=== PATIENT | male | born 1985 | race Caucasian/White ===

== ENCOUNTER 2018-05-03 23:07 | Inpatient (IN) | payer SELFPAY ==
[~2018-05-03] VITALS: Ht 170.2 cm; Wt 69.4 kg
[2018-05-03 23:40] LABS: BASOPHILS # (AUTO) 0.2 X10'3 (0-0.2); BASOPHILS % (AUTO) 0.8 % (0-1); EOSINOPHILS % (AUTO) 0.1 % (0-6); HEMATOCRIT 51.2 % (42.0-52.0); HEMOGLOBIN 17.5 g/dl (14.0-17.9); LYMPHOCYTES # (AUTO) 1.9 X10'3 (1.1-4.8); LYMPHOCYTES % (AUTO) 9.2 % (21-51); MEAN CORPUSCULAR HEMOGLOBIN 30.2 PG (27.0-31.0); MEAN CORPUSCULAR HGB CONC 34.2 % (33.0-36.5); MEAN CORPUSCULAR VOLUME 88.1 FL (78-98); MEAN PLATELET VOLUME 7.4 FL (7.4-10.4); MONOCYTES # (AUTO) 0.7 X10'3 (0-0.9); MONOCYTES % (AUTO) 3.3 % (2-12); NEUTROPHILS # (AUTO) 17.8 X10'3 (1.8-7.7); NEUTROPHILS % (AUTO) 86.6 % (42-75); PLATELET COUNT 408 X10'3 (140-440); RED BLOOD COUNT 5.81 X10'6 (4.70-6.10); RED CELL DISTRIBUTION WIDTH 13.1 % (11.5-14.5); WHITE BLOOD COUNT 20.5 X10'3 (4.5-11.0)
[2018-05-03] MEDS ORDERED: normal saline 1000ml 1,000 ML IV ONE (23:50)
[2018-05-03] MEDS ORDERED: morphine 4 MG/ML inj SYRINge IV ONE (23:50)
[2018-05-03] MEDS ORDERED: normal saline 1000ML IV soln IVB ONE (23:50)
[2018-05-03] MEDS ORDERED: ondansetron/PF 4mg/2ml inj IV ONE (23:50)
[2018-05-03 23:57] LABS: PROTHROMBIN TIME 10.1 SECONDS (9.0-12.0)
[2018-05-03] MEDS ORDERED: iohexol 300mg/ml 100ml inj. ONE (23:59)
[2018-05-04] VITALS (21 sets, daily range): BP systolic 99–142; BP diastolic 57–83
[2018-05-04] MEDS ORDERED: ondansetron/PF 4mg/2ml inj IV ONE (00:25)
[2018-05-04] MEDS ORDERED: piperacillin/tazo 3.375gm/50ml 50 ML IV SCH (00:49)
[2018-05-04] MEDS ORDERED: morphine 4 MG/ML inj SYRINge IV ONE (00:50)
[2018-05-04 00:57] LABS: ALANINE AMINOTRANSFERASE 43 U/L (12-78); ALBUMIN 3.3 G/DL (3.4-5.0); ALKALINE PHOSPHATASE 82 IU/L (46-116); ANION GAP 6 (8-16); ASPARTATE AMINO TRANSFERASE 10 U/L (10-37); BILIRUBIN,TOTAL 0.6 MG/DL (0.1-1.0); BLOOD UREA NITROGEN 12 MG/DL (7-18); BUN/CREATININE RATIO 15.4 (5.4-32.0); CHLORIDE 103 MMOL/L (99-107); CREATININE 0.78 MG/DL (0.60-1.10); GLUCOSE 134 MG/DL (70-104); LIPASE 96 U/L (73-393); POTASSIUM 3.4 MMOL/L (3.5-5.1); SODIUM 137 MMOL/L (135-145); TOTAL CARBON DIOXIDE 28.3 MMOL/L (24-32); TOTAL PROTEIN 6.6 G/DL (6.4-8.2); eGFR > 90 ML/MIN
[2018-05-04] MEDS: normal saline 1000ml 1,000 ML IV SCH ×3 (01:12→15:36)
[2018-05-04] MEDS ORDERED: morphine 4 MG/ML inj SYRINge IV PRN ×3 (01:15→12:45)
[2018-05-04] MEDS ORDERED: mag hydrox/Alum hydrox/simeth 30ml oral suspension PO PRN (01:15)
[2018-05-04] MEDS ORDERED: magnesium hydroxide 30ml (MOM) UD suspension PO PRN (01:15)
[2018-05-04 01:33] LABS: CLARITY,URINE CLEAR (Clear); COLOR,URINE YELLOW (Yellow); GLUCOSE, URINE NEGATIVE (Neg); KETONES,URINE 15 mg/dl (Neg); LEUKOCYTE ESTERASE ,URINE NEGATIVE (Neg); NITRITES, URINE NEGATIVE (Neg); OCCULT BLOOD,URINE NEGATIVE (Neg); PROTEIN,URINE NEGATIVE (Neg)
[2018-05-04 01:34] LABS: UA COLLECTION TYPE NON-SPECIFIED
[2018-05-04] MEDS: morphine 4 MG/ML inj SYRINge IV PRN ×2 (05:11→21:28)
[2018-05-04] MEDS ORDERED: potassium Cl 20 mEq SR tablet PO STA (07:10)
[2018-05-04] MEDS: piperacillin/tazo 4.5gm/100ml 100 ML IV SCH ×3 (07:48→23:13)
[2018-05-04] MEDS: HYDROmorphone/NS 1 mg/ml CADD 50 ML IV SCH ×7 (07:48→18:52)
[2018-05-04] MEDS ORDERED: NO HOME MEDS (07:59)
[2018-05-04] MEDS ORDERED: ceFAZolin 1000mg inj ONE (12:30)
[2018-05-04] MEDS ORDERED: BUPIVAcaine/PF 2.5mg/ml (0.25%) 10ml vial ONE (12:30)
[2018-05-04] MEDS ORDERED: sevoflurane 250ml liquid IH ONE (12:41)
[2018-05-04] MEDS ORDERED: ringers solution, lacted 1,000 ML IV SCH (12:42)
[2018-05-04] MEDS ORDERED: proCHLORperazine 10 MG/2 ml inj IV PRN (12:45)
[2018-05-04] MEDS ORDERED: meperidine/PF 25mg/ml syringe IV PRN ×2 (12:45)
[2018-05-04] MEDS ORDERED: ondansetron/PF 4mg/2ml inj IV PRN (12:45)
[2018-05-04] MEDS ORDERED: fentaNYL /PF 50mcg/ml 5ml ampule ONE (12:50)
[2018-05-04] MEDS ORDERED: midazolam 2 mg/2 ml injection ONE (12:50)
[2018-05-04] MEDS ORDERED: succinylcholine 20mg/ml inj IV ONE (13:00)
[2018-05-04] MEDS ORDERED: rocuronium 10mg/ml inj IV ONE (13:00)
[2018-05-04] MEDS ORDERED: propofol inj 20 ML IV ONE (13:00)
[2018-05-04] MEDS ORDERED: LIDOcaine 2% (20mg/ml) 5ml vial ONE (13:00)
[2018-05-04] MEDS ORDERED: glycopyrrolate 0.2mg/ml inj ONE (13:35)
[2018-05-04] MEDS ORDERED: neostigmine methylsulfate 1 MG/ML 10ml vial ONE (13:35)
[2018-05-04] MEDS ORDERED: ondansetron/PF 4mg/2ml inj ONE (14:13)
[2018-05-04] MEDS: meperidine/PF 25mg/ml syringe IV PRN ×2 (14:39→15:41)
[2018-05-04] MEDS ORDERED: CADD PCA waste documentation MC PRN (19:05)
[2018-05-04] MEDS: HYDROmorphone 1 mg/ml syringe IV PRN ×2 (19:15→23:13)
[2018-05-04] MEDS: acetaminophen 325mg tablet PO PRN (19:16)
[2018-05-04] MEDS: temazepam 15mg capsule PO PRN (21:32)
[2018-05-05] VITALS: BP 107/64
[2018-05-05] MEDS: ondansetron/PF 4mg/2ml inj IV PRN ×3 (01:09→20:02)
[2018-05-05] MEDS: temazepam 15mg capsule PO PRN ×2 (01:10→23:43)
[2018-05-05] MEDS: morphine 4 MG/ML inj SYRINge IV PRN ×3 (01:30→17:58)
[2018-05-05] MEDS: normal saline 1000ml 1,000 ML IV SCH ×2 (02:40→12:43)
[2018-05-05 04:00] VITALS: BP 124/79
[2018-05-05 04:28] LABS: BASOPHILS # (AUTO) 0.1 X10'3 (0-0.2); BASOPHILS % (AUTO) 0.6 % (0-1); EOSINOPHILS % (AUTO) 0 % (0-6); HEMATOCRIT 45.5 % (42.0-52.0); HEMOGLOBIN 15.4 g/dl (14.0-17.9); LYMPHOCYTES # (AUTO) 2.3 X10'3 (1.1-4.8); LYMPHOCYTES % (AUTO) 13.7 % (21-51); MEAN CORPUSCULAR HEMOGLOBIN 30.7 PG (27.0-31.0); MEAN CORPUSCULAR HGB CONC 33.8 % (33.0-36.5); MEAN CORPUSCULAR VOLUME 90.9 FL (78-98); MEAN PLATELET VOLUME 7.2 FL (7.4-10.4); MONOCYTES # (AUTO) 1.4 X10'3 (0-0.9); MONOCYTES % (AUTO) 8.5 % (2-12); NEUTROPHILS % (AUTO) 77.2 % (42-75); PLATELET COUNT 283 X10'3 (140-440); RED CELL DISTRIBUTION WIDTH 13.6 % (11.5-14.5); WHITE BLOOD COUNT 16.9 X10'3 (4.5-11.0)
[2018-05-05 04:46] LABS: ALANINE AMINOTRANSFERASE 30 U/L (12-78); ALBUMIN 2.9 G/DL (3.4-5.0); ALBUMIN/GLOBULIN RATIO 0.8 (1.1-1.5); ALKALINE PHOSPHATASE 85 IU/L (46-116); ANION GAP 7 (8-16); ASPARTATE AMINO TRANSFERASE 18 U/L (10-37); BILIRUBIN,TOTAL 1.5 MG/DL (0.1-1.0); BLOOD UREA NITROGEN 6 MG/DL (7-18); BUN/CREATININE RATIO 6.6 (5.4-32.0); CALCIUM 8.4 MG/DL (8.5-10.1); CHLORIDE 103 MMOL/L (99-107); CREATININE 0.91 MG/DL (0.60-1.10); GLUCOSE 102 MG/DL (70-104); POTASSIUM 3.7 MMOL/L (3.5-5.1); SODIUM 137 MMOL/L (135-145); TOTAL CARBON DIOXIDE 27.4 MMOL/L (24-32); TOTAL PROTEIN 6.7 G/DL (6.4-8.2); eGFR > 90 ML/MIN
[2018-05-05] MEDS: HYDROmorphone 1 mg/ml syringe IV PRN ×3 (05:24→23:38)
[2018-05-05 07:00] VITALS: BP 108/58
[2018-05-05] MEDS: piperacillin/tazo 4.5gm/100ml 100 ML IV SCH ×2 (08:50→16:37)
[2018-05-05] MEDS: acetaminophen 325mg tablet PO PRN ×2 (08:54→20:03)
[2018-05-05 11:00] VITALS: BP 121/78
[2018-05-05 20:00] VITALS: BP 134/84
[2018-05-06] VITALS: BP 94/54
[2018-05-06] MEDS: piperacillin/tazo 4.5gm/100ml 100 ML IV SCH ×3 (00:31→15:15)
[2018-05-06] MEDS: Potassium Cl inj 20 MEQ in normal saline 1000ml 1,000 ML IV SCH ×2 (02:10→14:54)
[2018-05-06] MEDS: HYDROmorphone 1 mg/ml syringe IV PRN (03:38)
[2018-05-06] MEDS: ondansetron/PF 4mg/2ml inj IV PRN ×2 (03:38→15:08)
[2018-05-06] MEDS ORDERED: HYDROmorphone 1 mg/ml syringe IV PRN (04:20)
[2018-05-06 06:13] LABS: ALANINE AMINOTRANSFERASE 30 U/L (12-78); ALBUMIN 2.9 G/DL (3.4-5.0); ALBUMIN/GLOBULIN RATIO 0.7 (1.1-1.5); ALKALINE PHOSPHATASE 76 IU/L (46-116); ANION GAP 8 (8-16); ASPARTATE AMINO TRANSFERASE 21 U/L (10-37); BLOOD UREA NITROGEN 8 MG/DL (7-18); BUN/CREATININE RATIO 7.9 (5.4-32.0); CALCIUM 8.8 MG/DL (8.5-10.1); CHLORIDE 102 MMOL/L (99-107); CREATININE 1.01 MG/DL (0.60-1.10); GLUCOSE 130 MG/DL (70-104); POTASSIUM 3.6 MMOL/L (3.5-5.1); SODIUM 140 MMOL/L (135-145); TOTAL CARBON DIOXIDE 30.5 MMOL/L (24-32); eGFR 84 ML/MIN
[2018-05-06 06:22] LABS: BASOPHILS % (AUTO) 0.1 % (0-1); EOSINOPHILS # (AUTO) 0.1 X10'3 (0-0.9); EOSINOPHILS % (AUTO) 0.4 % (0-6); HEMATOCRIT 45.6 % (42.0-52.0); HEMOGLOBIN 15.3 g/dl (14.0-17.9); LYMPHOCYTES # (AUTO) 1.6 X10'3 (1.1-4.8); LYMPHOCYTES % (AUTO) 9.8 % (21-51); MEAN CORPUSCULAR HEMOGLOBIN 30.4 PG (27.0-31.0); MEAN CORPUSCULAR HGB CONC 33.6 % (33.0-36.5); MEAN CORPUSCULAR VOLUME 90.5 FL (78-98); MEAN PLATELET VOLUME 7.5 FL (7.4-10.4); MONOCYTES # (AUTO) 1.3 X10'3 (0-0.9); MONOCYTES % (AUTO) 7.8 % (2-12); NEUTROPHILS # (AUTO) 13.6 X10'3 (1.8-7.7); NEUTROPHILS % (AUTO) 81.9 % (42-75); PLATELET COUNT 313 X10'3 (140-440); RED BLOOD COUNT 5.04 X10'6 (4.70-6.10); RED CELL DISTRIBUTION WIDTH 13.2 % (11.5-14.5); WHITE BLOOD COUNT 16.5 X10'3 (4.5-11.0)
[2018-05-06 07:16] VITALS: BP 110/80
[2018-05-06] MEDS ORDERED: ketorolac trometh. 30mg/ml inj. IV PRN (10:35)
[2018-05-06] MEDS: pantoprazole 40 MG vial IV SCH (10:57)
[2018-05-06 12:30] VITALS: BP 116/85
[2018-05-06] MEDS: levoFLOXACIN-Levaquin 500mg/D5 100 ML IV SCH (16:25)
[2018-05-06 20:00] VITALS: BP 121/82
[2018-05-06] MEDS: metroNIDAZOLE-Flagyl 500mg/NS 100 ML IV SCH (20:12)
[2018-05-06] MEDS: temazepam 15mg capsule PO PRN (20:21)
[2018-05-06] MEDS: HYDROcodone/acetaminophen 5mg/325mg tablet PO PRN (20:22)
[2018-05-07] VITALS: BP 128/77
[2018-05-07] MEDS: Potassium Cl inj 20 MEQ in normal saline 1000ml 1,000 ML IV SCH ×2 (02:28→04:17)
[2018-05-07] MEDS: HYDROcodone/acetaminophen 5mg/325mg tablet PO PRN (03:07)
[2018-05-07 04:28] LABS: BASOPHILS % (AUTO) 0.4 % (0-1); EOSINOPHILS # (AUTO) 0.2 X10'3 (0-0.9); EOSINOPHILS % (AUTO) 1.8 % (0-6); HEMATOCRIT 43.6 % (42.0-52.0); HEMOGLOBIN 14.6 g/dl (14.0-17.9); LYMPHOCYTES # (AUTO) 2.1 X10'3 (1.1-4.8); LYMPHOCYTES % (AUTO) 16.9 % (21-51); MEAN CORPUSCULAR HEMOGLOBIN 30.4 PG (27.0-31.0); MEAN CORPUSCULAR HGB CONC 33.6 % (33.0-36.5); MEAN CORPUSCULAR VOLUME 90.6 FL (78-98); MEAN PLATELET VOLUME 7.7 FL (7.4-10.4); MONOCYTES # (AUTO) 1.1 X10'3 (0-0.9); MONOCYTES % (AUTO) 9.1 % (2-12); NEUTROPHILS # (AUTO) 9.1 X10'3 (1.8-7.7); NEUTROPHILS % (AUTO) 71.8 % (42-75); PLATELET COUNT 335 X10'3 (140-440); RED BLOOD COUNT 4.81 X10'6 (4.70-6.10); RED CELL DISTRIBUTION WIDTH 13.1 % (11.5-14.5); WHITE BLOOD COUNT 12.6 X10'3 (4.5-11.0)
[2018-05-07 04:38] LABS: ALANINE AMINOTRANSFERASE 20 U/L (12-78); ALBUMIN 2.6 G/DL (3.4-5.0); ALBUMIN/GLOBULIN RATIO 0.7 (1.1-1.5); ALKALINE PHOSPHATASE 68 IU/L (46-116); ANION GAP 8 (8-16); ASPARTATE AMINO TRANSFERASE 16 U/L (10-37); BILIRUBIN,TOTAL 0.6 MG/DL (0.1-1.0); BLOOD UREA NITROGEN 7 MG/DL (7-18); BUN/CREATININE RATIO 9.9 (5.4-32.0); CALCIUM 8.4 MG/DL (8.5-10.1); CHLORIDE 103 MMOL/L (99-107); CREATININE 0.71 MG/DL (0.60-1.10); GLUCOSE 84 MG/DL (70-104); POTASSIUM 3.4 MMOL/L (3.5-5.1); SODIUM 137 MMOL/L (135-145); TOTAL CARBON DIOXIDE 26.2 MMOL/L (24-32); TOTAL PROTEIN 6.5 G/DL (6.4-8.2); eGFR > 90 ML/MIN
[2018-05-07] MEDS: pantoprazole 40 MG vial IV SCH (07:26)
[2018-05-07] MEDS: levoFLOXACIN-Levaquin 500mg/D5 100 ML IV SCH (07:26)
[2018-05-07 08:00] VITALS: BP 112/83
[2018-05-07] MEDS: metroNIDAZOLE-Flagyl 500mg/NS 100 ML IV SCH (09:16)
[2018-05-07] MEDS ORDERED: HYDR-569 PO (10:17)
[2018-05-07] MEDS ORDERED: DOCU-28 PO (10:17)
[2018-05-07] MEDS ORDERED: METR500T4 PO (10:17)
[2018-05-07] MEDS ORDERED: LEVO500T2 PO (10:17)
[2018-05-07] MEDS ORDERED: FAMO-128 PO (10:17)
[2018-05-07] MEDS ORDERED: POTA20TA19 PO (10:21)
[2018-05-07 12:28] VITALS: BP 115/77
[2018-05-07] MEDS ORDERED: lactobacillus rhamnosus 10,000 MMU CELLS/CAPSULE PO SCH (20:00)
== END 2018-05-07 15:03 | disposition home or self-care (01) | DRG 343 ==
LOC: ER 23:08 → ED HOLD 05-04 01:12 → SUR 3N 05-04 01:55 → PACU 05-04 12:25 → OBSVTOIN 05-04 14:00 → SUR 3N 05-04 15:17
PROVIDERS: ADMIT Hospitalist; ATTEND Internal Medicine
PROC: BW201ZZ Computerized Tomography (CT Scan) of Abdomen using Low Osmolar Contrast (ICD-10-PCS; 2018-05-04)
PROC: 0DTJ4ZZ Resection of Appendix, Percutaneous Endoscopic Approach (ICD-10-PCS; principal; 2018-05-05)
DX: K35.80 Unspecified acute appendicitis (principal); F17.200 Nicotine dependence, unspecified, uncomplicated; E87.6 Hypokalemia; D72.829 Elevated white blood cell count, unspecified; K76.0 Fatty (change of) liver, not elsewhere classified
CPT/HCPCS: 36415; 71045; 74177; 80053; 81003; 83690; 85025; 85610; 87070; A4315; A6258; A7000; C9113; G0378; J0330; J0690; J1170; J1956; J2001; J2175; J2250; J2270; J2405; J2543; J2704; J2710; J3010; J3480; J3490; J7030; J7120; Q9967